=== PATIENT | female | born 1955 | race Caucasian/White ===

== ENCOUNTER 2022-02-01 09:26 | Outpatient (CLI) | payer MEDICARE, SELFPAY ==
[2022-02-01 13:53] LABS: Chloride* 97 mmol/L (96-114); Potassium* 4.9 mmol/L (3.6-5.1); Sodium* 133 mmol/L (135-149)
[2022-02-01 13:55] LABS: Aspartate Amino Transferase* 38 U/L (12-35); Bilirubin Total* 0.3 mg/dL (0.1-1.5); Carbon Dioxide* 25 mmol/L (20-32); Cholesterol* 245 mg/dL (90-199); Creatinine* 0.7 mg/dL (0.5-1.5); Estimated Glomerular Filt Rate 95 ml/min; Total Protein* 7.8 g/dL (6.0-8.3)
[2022-02-01 13:56] LABS: Alanine Aminotransferase* 19 U/L (4-35); Alkaline Phosphatase* 82 U/L (40-150); Blood Urea Nitrogen* 20 mg/dL (7-30); Calcium* 9.5 mg/dL (8.4-10.6); Glucose* 82 mg/dL (60-115); Triglycerides* 128 mg/dL (40-149)
[2022-02-01 14:04] LABS: Vitamin D 25 Hydroxy* 52 ng/mL (30-80)
[2022-02-01 14:07] LABS: HDL Cholesterol* 173 mg/dL (>=50); LDL Cholesterol Calculated 46 mg/dL (<100)
[2022-02-01 14:22] LABS: Ferritin* 85.6 ng/mL (11.1-264.0)
[2022-02-01 14:23] LABS: TSH With Reflex to FT4* 0.099 uIU/mL (0.270-4.200)
[2022-02-01 14:41] LABS: Vitamin B12* 685 pg/mL (243-894)
[2022-02-01 16:06] LABS: Free T4 Free Thyroxine* 1.68 ng/dL (0.70-1.85)
== END 2022-02-01 09:27 | disposition home or self-care (01) ==
PROVIDERS: PCP Physician Assistant Medical; Visit Provider Physician Assistant Medical
DX: E03.9 Hypothyroidism, unspecified (principal); I10 Essential (primary) hypertension; R20.2 Paresthesia of skin; E55.9 Vitamin D deficiency, unspecified
CPT/HCPCS: 80053; 80061; 82306; 82607; 82728; 84439; 84443

== ENCOUNTER 2022-04-20 07:02 | Outpatient (CLI) | payer MEDICARE, SELFPAY ==
[2022-04-20 15:40] LABS: TSH With Reflex to FT4* 0.288 uIU/mL (0.270-4.200)
== END 2022-04-20 07:03 | disposition home or self-care (01) ==
LOC: FRMREF 09:32
PROVIDERS: PCP Physician Assistant Medical; Visit Provider Physician Assistant Medical
DX: E03.9 Hypothyroidism, unspecified (principal)
CPT/HCPCS: 84443

== ENCOUNTER 2022-07-27 12:43 | Outpatient (CLI) | payer MEDICARE, SELFPAY ==
--- NOTE | 2022-07-27 13:00 | CRLHL7_ITS ---
For Patients: As a result of the Century Cures Act, medical imaging exams and procedure reports are released immediately into your electronic medical record. You may view this report before your referring provider. If you have questions, please contact your health care provider. BILATERAL SCREENING MAMMOGRAM WITH COMPUTER-AIDED DETECTION AND TOMOSYNTHESIS TECHNIQUE: CC and MLO views were obtained. These mammographic images have been obtained using full-field digital technique. These mammographic images were interpreted with the benefit of computer-aided detection. Breast Tomosynthesis was used in this interpretation. COMPARISON FILM: 03/23/21, 03/17/20, 09/25/18. FINDINGS: The breasts are extremely dense, which lowers the sensitivity of mammography IMPRESSION: There is no radiographic evidence for malignancy. ASSESSMENT: BI-RADS Category 1: Negative RECOMMENDATION: Routine screening mammogram in 1 year. A lay language report of this examination will be provided to the patient. Rick Delgado M.D. Diagnostic Radiologist [email or web address] BE/Dictated by: Rick Delgado MD @ 07/28/2022 12:26:00 PM (Electronically Signed)
--- NOTE | 2022-07-27 13:30 | CRLHL7_ITS ---
For Patients: As a result of the Century Cures Act, medical imaging exams and procedure reports are released immediately into your electronic medical record. You may view this report before your referring provider. If you have questions, please contact your health care provider. DXA BONE MINERAL DENSITY STUDY Reason for exam: Post-menopausal status. Current height (in): 66.0. Weight (lb): 102.0. Menopause age: 55. Ethnicity: White. 1. Have you had a previous hip or vertebral fracture? No. 2. Have you had any fractures during your adult life which did not result from significant trauma (e.g., auto accident)? Yes. 3. Did either of your parents have a hip fracture? No. 4. Do you smoke? No. 5. Have you ever taken Glucocorticoids? No. 6. Do you have rheumatoid arthritis? No. 7. Do you have secondary osteoporosis? No. 8. Do you drink 3 or more alcoholic drinks per day? No. 9. Are you being treated for osteoporosis? No. 10. Have you ever taken any of the following medications: Actonel, Evista, Fosamax, Miacalcin, Reclast, Boniva, Forteo, HRT (i.e. estrogen/hormone therapy), Protelos, Prolia, Vitamin D, Calcium, other ??? please specify. ANSWER: Yes: Vitamin D, calcium. 11. Do you have any of the following medical conditions: Anorexia or bulimia, asthma or emphysema, end stage renal disease, hyperparathyroidism, any seizure disorders, cancer, inflammatory bowel diseases, hysterectomy, other ??? please specify. ANSWER: Yes, inflammatory bowel diseases. 12. What was your maximum height (inches)? 67. 13. Do you perform weight bearing exercise regularly? Yes. 14. Do you regularly consume dairy products? No. 15. Do you drink caffeinated beverages? No. If female: 16. At what age did your period start? 14. 17. Are you premenopausal? No. 18. How many full term pregnancies have you had? 3. 19. Have you ever missed your period for more than 6 months in a row (not including or menopause)? No. TECHNIQUE: Bone mineral density study was performed using the [employer]. FINDINGS: The results of the study expressed as bone mineral density (BMD) are as follows: Lumbar spine L1 to L3: BMD: 0.810 g/cm2. T-score: -1.9. Z-score: -0.1. Neck Right: BMD: 0.683 g/cm2. T-score: -1.5. Z-score: 0.1. Total Right: BMD: 0.807 g/cm2. T-score: -1.1. Z-score: 0.2. Radius Left 33%: BMD: 0.602 g/cm2. T-score: -1.5. Z-score: 0.2. IMPRESSION: Osteopenia. *Comparison exams done prior to 10/2019 were performed on different unit, [facility]. FRAX 10-year Fracture Risk Major Osteoporotic Fracture: 12 percent Hip Fracture: 1.6 percent Reported Risk Factors: [place] () Neck BMD=0.683, BMI=16.5, previous fracture Rick Delgado M.D. Diagnostic Radiologist [email or web address] BE/Dictated by: Rick Delgado MD @ 07/28/2022 11:50:00 AM (Electronically Signed)
== END 2022-07-27 12:44 | disposition home or self-care (01) ==
PROVIDERS: PCP Physician Assistant Medical; Visit Provider Physician Assistant Medical
DX: Z12.31 Encounter for screening mammogram for malignant neoplasm of breast (principal); R92.2 Inconclusive mammogram; Z78.0 Asymptomatic menopausal state; M85.89 Other specified disorders of bone density and structure, multiple sites
CPT/HCPCS: 77063; 77067; 77080

== ENCOUNTER 2023-03-07 10:58 | Outpatient (CLI) | payer MEDICARE, SELFPAY | END 2023-03-07 10:59 | disposition home or self-care (01) | LOC: NFLDREF 03-10 18:20 | PROVIDERS: PCP Physician Assistant Medical; Referring Provider Physician Assistant Medical; Visit Provider Physician Assistant Medical | DX: Z00.00 Encounter for general adult medical examination without abnormal findings (principal); E03.9 Hypothyroidism, unspecified; I10 Essential (primary) hypertension; J45.30 Mild persistent asthma, uncomplicated; Z13.6 Encounter for screening for cardiovascular disorders | CPT/HCPCS: 80053; 80061; 84443 ==

== ENCOUNTER 2023-09-17 10:13 | Outpatient (CLI) | payer MEDICARE, SELFPAY ==
--- NOTE | 2023-09-17 10:15 | MM_ITS ---
Patient: ERIKA BRITT Facility:?[facility] Patient ID:?[id number] Site Patient [id number]:?[id number]. Site :?[id number] Study:?XRay-Breast Bilateral 3D W/CAD-09/17/2023 10:38:17 AM Ordering Physician:Randi Final Report: BILATERAL SCREENING MAMMOGRAM WITH COMPUTER-AIDED DETECTION AND TOMOSYNTHESIS TECHNIQUE: CC and MLO views were obtained. These mammographic images have been obtained using full-field digital technique. These mammographic images were interpreted with the benefit of computer-aided detection. Breast Tomosynthesis was used in this interpretation. COMPARISON FILM: 07/27/22, 03/23/21, 03/17/20. FINDINGS: The breasts are heterogeneously dense, which may obscure small masses. IMPRESSION: There is no radiographic evidence for malignancy. ASSESSMENT: BI-RADS Category 1: Negative RECOMMENDATION: Routine screening mammogram in 1 year. A lay language report of this examination will be provided to the patient. Rick Delgado M.D. Diagnostic Radiologist [email or web address] DSM/sp R& Transcribed: 3:55 p.m. SP/Dictated by: Rick Delgado MD @ 09/17/2023 12:31:00 PM Signed by:?Rick Delgado MD @09/17/2023 3:59:18 PM (Electronic Signature)
== END 2023-09-17 10:14 | disposition home or self-care (01) ==
PROVIDERS: PCP Physician Assistant Medical; Visit Provider Physician Assistant Medical
DX: Z12.31 Encounter for screening mammogram for malignant neoplasm of breast (principal); R92.2 Inconclusive mammogram
CPT/HCPCS: 77063; 77067

== ENCOUNTER 2023-12-20 09:08 | Outpatient (CLI) | payer MEDICARE, SELFPAY | END 2023-12-20 09:09 | disposition home or self-care (01) | LOC: NFLDREF 12-21 10:43 | PROVIDERS: PCP Physician Assistant Medical; Referring Provider Physician Assistant Medical; Visit Provider Physician Assistant Medical | DX: E03.9 Hypothyroidism, unspecified (principal) | CPT/HCPCS: 84443 ==

== ENCOUNTER 2024-03-31 09:35 | Outpatient (CLI) | payer MEDICARE, SELFPAY | END 2024-03-31 09:36 | disposition home or self-care (01) | LOC: NFLDREF 04-03 06:49 | PROVIDERS: PCP Physician Assistant Medical; Referring Provider Physician Assistant Medical; Visit Provider Physician Assistant Medical | DX: Z00.00 Encounter for general adult medical examination without abnormal findings (principal); I10 Essential (primary) hypertension; E03.9 Hypothyroidism, unspecified; K52.9 Noninfective gastroenteritis and colitis, unspecified; J45.30 Mild persistent asthma, uncomplicated | CPT/HCPCS: 80053; 80061; 84443 ==

== ENCOUNTER 2024-09-29 10:04 | Outpatient (CLI) | payer MEDICARE, SELFPAY ==
--- NOTE | 2024-09-29 10:15 | CRLHL7_ITS ---
For Patients: As a result of the Century Cures Act, medical imaging exams and procedure reports are released immediately into your electronic medical record. You may view this report before your referring provider. If you have questions, please contact your health care provider. INDICATION: BILATERAL SCREENING MAMMOGRAM, ASYMPTOMATIC 69 Y/O FEMALE COMPARISON: 09/17/2023, 07/27/2022, 03/23/2021 TECHNIQUE: Digital mammogram in CC and MLO projections including computer-aided detection (CAD) and tomosynthesis. BREAST COMPOSITION: The breasts are heterogeneously dense, which may obscure small masses. FINDINGS: No suspicious findings. ASSESSMENT: BI-RADS 1 Negative RECOMMENDATION: Annual screening mammogram. A lay language report of this examination will be provided to the patient. Dictated by: Rick Delgado MD @ 09/29/2024 11:57:10 (Electronically Signed)
== END 2024-09-29 10:05 | disposition home or self-care (01) ==
LOC: MAMMO 10:05
PROVIDERS: PCP Physician Assistant Medical; Visit Provider Physician Assistant Medical
DX: Z12.31 Encounter for screening mammogram for malignant neoplasm of breast (principal); R92.333 Mammographic heterogeneous density, bilateral breasts
CPT/HCPCS: 77063; 77067

== ENCOUNTER 2025-03-12 15:16 | Outpatient (CLI) | payer MEDICARE, SELFPAY ==
--- NOTE | 2025-03-12 15:30 | XR_ITS ---
Patient: ERIKA BRITT Facility:?[facility] Patient ID:?[id number] Site Patient ID:?[id number] Site :?[id number] Study:?DEXA-Bone Density Spine/ R hip/ L WRIST-03/12/2025 8:17:12 AM Ordering Physician:?MECHELLE LEBLANC Final Report: XR DXA Bone Mineral Density (BMD) Reason for exam: Osteopenia. Current height (in): 66. Weight (lb): 104. Menopause age: 55. Ethnicity: White. 1. Have you had a previous hip or vertebral fracture? No. 2. Have you had any fractures during your adult life which did not result from significant trauma (e.g., auto accident)? Yes. 3. Did either of your parents have a hip fracture? No. 4. Do you smoke? No. 5. Have you ever taken Glucocorticoids? Yes. 6. Do you have rheumatoid arthritis? Yes. 7. Do you have secondary osteoporosis? No. 8. Do you drink 3 or more alcoholic drinks per day? No. 9. Are you being treated for osteoporosis? No. 10. Have you ever taken any of the following medications: Actonel, Evista, Fosamax, Miacalcin, Reclast, Boniva, Forteo, HRT (i.e. estrogen/hormone therapy), Protelos, Prolia, Vitamin D, Calcium, other ? please specify. ANSWER: Yes, HRT, vitamin D, calcium. 11. Do you have any of the following medical conditions: Anorexia or bulimia, asthma or emphysema, end stage renal disease, hyperparathyroidism, any seizure disorders, cancer, inflammatory bowel diseases, hysterectomy, other ? please specify. ANSWER: Yes, inflammatory bowel disease. 12. What was your maximum height (inches)? 67. 13. Do you perform weight bearing exercise regularly? Yes. 14. Do you regularly consume dairy products? No. 15. Do you drink caffeinated beverages? No. 16. At what age did your period start? 14. 17. Are you premenopausal? No. 18. How many full term pregnancies have you had? 3. 19. Have you ever missed your period for more than 6 months in a row (not including or menopause)? No. TECHNIQUE: Bone mineral density study was performed using the [employer]. FINDINGS: The results of the study expressed as bone mineral density (BMD) are as follows: Lumbar spine L1 to L3: BMD: 0.775 g/cm2. T-score: -2.2. Z-score: -0.2. Neck Right: BMD: 0.760 g/cm2. T-score: -0.8. Z-score: 0.9. Total Right: BMD: 0.945 g/cm2. T-score: 0.0. Z-score: 1.5. Radius Left 33%: BMD: 0.618 g/cm2. T-score: -1.3. Z-score: 0.7. IMPRESSION: Osteopenia. COMPARISON: Compared with scan of 07/27/2022, the bone mineral density has decreased by 4.2 percent at the spine, and increased by 17.2 percent at the hip, and increased by 2.6 percent at the forearm. FRAX 10-year Fracture Risk Major Osteoporotic Fracture: 21 percent Hip Fracture: 2.5 percent Reported Risk Factors: [place] () Neck BMD=0.760, BMI=16.8, previous fracture, glucocorticoids, rheumatoid arthritis Rick Delgado M.D. Diagnostic Radiologist [email or web address] ROLAND/therese D& bM/Dictated by: Rick Delgado MD @ 03/13/2025 9:24:00 AM (Electronic Signature)
== END 2025-03-12 15:17 | disposition home or self-care (01) ==
LOC: RAD 15:17
PROVIDERS: PCP Physician Assistant Medical; Visit Provider Physician Assistant Medical
DX: M85.89 Other specified disorders of bone density and structure, multiple sites (principal)
CPT/HCPCS: 77080